=== PATIENT | female | born 1980 | race Caucasian/White ===

== ENCOUNTER 2018-09-26 09:44 | Emergency (ER) | payer MEDICAID, OTHER ==
[2018-09-26 09:51] VITALS: BMI 24.2
--- NOTE | 2018-09-26 10:52 | ED PDOC ---
HPI: Chest Pain Time Seen by Provider: 09/26/18 09:58 Chief Complaint (Nursing): Chest Pain Chief Complaint (Provider): Chest Pain History Per: Patient History/Exam Limitations: no limitations Onset/Duration Of Symptoms: Days (x3) Current Symptoms Are (Timing): Still Present Additional Complaint(s): Patient is a 38 y/o female with no significant PMHx who presents to the ED for evaluation of left-sided chest pain for the past three days. Patient reports the pain is radiating to her neck and left shoulder and arm. Patient indicated her chest pain worsens on deep inspiration, her shoulder and arm pain is exacerbated on movement, and her neck pain is positional. Patient denies cough, difficulty breathing, leg swelling, recent travel, control use, and recent injury. PCP: None Past Medical History Reviewed: Historical Data, Nursing Documentation, Vital Signs Vital Signs: Last Vital Signs Temp 98.5 F 09/26/18 09:51 Pulse 62 09/26/18 09:51 Resp 17 09/26/18 09:51 BP 127/75 09/26/18 09:51 Pulse Ox 98 09/26/18 09:51 Primary Care Provider: FAMILY PROVIDER,NO - Medical History PMH: No Chronic Diseases - Surgical History Surgical History: Appendectomy - Family History Family History: States: Unknown Family Hx - Immunization History Hx Tetanus Toxoid Vaccination: No Hx Influenza Vaccination: No Hx Pneumococcal Vaccination: No - Home Medications Home Medications: Ambulatory Orders Medication Instructions Recorded Acetaminophen/Butalbital/Caf 1 tab PO Q6H PRN #20 tab 02/24/14 [Fioricet 325 mg-50 mg-40 mg] Docusate [Colace] 100 mg PO BID #60 udc 02/24/14 oxyCODONE/Acetaminophen [Percocet 1 tab PO QID PRN #20 tab 02/24/14 5/325 mg Tab] Vitamins [ 1 Plus 1 tab PO DAILY #30 tab 05/20/14 Iron] Nitrofurantoin Macrocrystals 100 mg PO BID #10 cap 07/29/14 [Macrobid] Vitamins [ 1 1 tab PO DAILY #30 tab 07/29/14 Vitamin] Docusate [Colace] 100 mg PO TID #90 cap 01/05/15 Ferrous Sulfate 325 mg PO TID #90 tab 01/05/15 - Allergies Allergies/Adverse Reactions: Allergies Allergy/AdvReac Type Severity Reaction Status Date / Time No Known Allergies Allergy Verified 09/26/18 10:00 Review of Systems ROS Statement: Except As Marked, All Systems Reviewed And Found Negative Cardiovascular: Positive for: Chest Pain (left-sided) Respiratory: Negative for: Cough, Shortness of Breath, Other (difficulty breathing) Musculoskeletal: Positive for: Neck Pain, Shoulder Pain (left), Arm Pain (left). Negative for: Leg Pain (or swelling) Physical Exam - Reviewed Nursing Documentation Reviewed: Yes Vital Signs Reviewed: Yes - Physical Exam Appears: Positive for: No Acute Distress Head Exam: Positive for: ATRAUMATIC, NORMAL INSPECTION, NORMOCEPHALIC Skin: Positive for: Normal Color, Warm, DRY Eye Exam: Positive for: EOMI, Normal appearance, PERRL Neck: Positive for: Normal, Painless ROM, Supple Cardiovascular/Chest: Positive for: Regular Rate, Rhythm, Other (tenderness to palpation of left chest wall ). Negative for: Murmur Respiratory: Positive for: Normal Breath Sounds. Negative for: Respiratory Distress Gastrointestinal/Abdominal: Positive for: Normal Exam, Soft. Negative for: Tenderness Back: Positive for: Normal Inspection. Negative for: L CVA Tenderness, R CVA Tenderness Extremity: Positive for: Normal ROM (with pain in left shoulder), Capillary Refill (less than 2 seconds). Negative for: Pedal Edema, Deformity, Swelling, Other (ecchymosis) Neurological/Psych: Positive for: Awake, Alert, Oriented (x3) - Laboratory Results Result Diagrams: 09/26/18 10:45 09/26/18 10:45 - ECG ECG Rhythm: Positive for: Sinus Rhythm Rate: 64 O2 Sat by Pulse Oximetry: 98 (RA) Pulse Ox Interpretation: Normal Medical Decision Making Medical Decision Making: Time: 1014 Impression: Chest Pain and Musculoskeletal Pain DDx includes but not limited to cervical radiculopathy and PE. Plan: EKG BMP CPK Troponin I CBC D Dimer CXR Toradol 15 mg IVP Atg Java Developer Time: 1106 CXR FINDINGS: LUNGS: No active pulmonary disease. PLEURA: No significant pleural effusion identified. No pneumothorax apparent. CARDIOVASCULAR: No aortic atherosclerotic calcification present. Normal cardiac size. No pulmonary vascular congestion. OSSEOUS STRUCTURES: No significant abnormalities. VISUALIZED UPPER ABDOMEN: Normal. OTHER FINDINGS: None. IMPRESSION: No active disease. TIme: 1438 Patient still reports chest tightness. Ordering CT Chest w/ Contrast and will administer 2 mg of Morphine IVP. Time: 1600 Patient endorsed from provider to Jeremy Terrazas MD. Pending CT. Scribe Attestation: Documented by Sanjay Parker, acting as a scribe Braden James MD. Provider Scribe Attestation: All medical record entries made by the Scribe were at my direction and personally dictated by me. I have reviewed the chart and agree that the record accurately reflects my personal performance of the history, physical exam, medical decision making, and the department course for this patient. I have also personally directed, reviewed, and agree with the discharge instructions and disposition. Disposition - Disposition Forms: [employer] (Serbian)
--- NOTE | 2018-09-26 11:10 | RAD ---
Date of service: 09/26/2018 HISTORY: chest pain COMPARISON: None TECHNIQUE: Chest PA and lateral views FINDINGS: LUNGS: No active pulmonary disease. PLEURA: No significant pleural effusion identified. No pneumothorax apparent. CARDIOVASCULAR: No aortic atherosclerotic calcification present. Normal cardiac size. No pulmonary vascular congestion. OSSEOUS STRUCTURES: No significant abnormalities. VISUALIZED UPPER ABDOMEN: Normal. OTHER FINDINGS: None. IMPRESSION: No active disease.
[2018-09-26 11:19] LABS: BASO # 0.1 K/uL (0.0-0.2); BASO % 0.6 % (0.0-2.0); EOS # 0.1 K/uL (0.0-0.7); EOS % 0.9 % (0.0-4.0); HEMOGLOBIN 13.1 g/dL (12.0-16.0); LYMPH # 1.9 K/uL (1.0-4.3); LYMPH % 21.4 % (20.0-40.0); MEAN CELL VOLUME 88.6 fl (81.0-99.0); MEAN CORPUSCULAR HEMOGLOBIN 29.7 pg (27.0-31.0); MEAN CORPUSCULAR HGB CONC 33.5 g/dL (33.0-37.0); MEAN PLATELET VOLUME 9.3 fl (7.2-11.7); MONO # 0.6 K/uL (0.0-0.8); MONO % 6.4 % (0.0-10.0); NEUT # 6.4 K/uL (1.8-7.0); NEUT % 70.7 % (50.0-75.0); NRBC % 0.1 % (0.0-0.0); RBC 4.41 Mil/uL (3.80-5.20); RED CELL DISTRIBUTION WIDTH 13.5 % (11.5-14.5); WHITE BLOOD COUNT 9.1 K/uL (4.8-10.8)
[2018-09-26 11:44] LABS: BLOOD UREA NITROGEN 13 mg/dl (7-17); CALCIUM 9.2 mg/dL (8.4-10.2); GFR NON-AFRICAN AMERICAN > 60
[2018-09-26] MEDS ORDERED: Iohexol 300 100 ML IJ ONE (15:23)
[2018-09-26] MEDS ORDERED: Sodium Chloride 0.9% 50 ML IV ONE (15:24)
--- NOTE | 2018-09-26 16:00 | ED PDOC ---
- Laboratory Results Result Diagrams: 09/26/18 10:45 09/26/18 10:45 Lab Results: D-Dimer, Quantitative < 200 ng/mlDDU (0-230) 09/26/18 10:45 Troponin I < 0.0120 ng/mL (0.00-0.120) 09/26/18 10:45 - ECG O2 Sat by Pulse Oximetry: 98 (RA) Pulse Ox Interpretation: Normal Medical Decision Making Medical Decision Making: Time: 1600 Patient endorsed to provider from Waqas James MD. Pending CT Chest. 16:52 CT Chest with contrast FINDINGS: LUNGS: Faint multifocal airspace disease likely pneumonitis/bronchitis. None cardiogenic pulmonary edema can also assume this appearance. MEDIASTINUM: Unremarkable thoracic aorta. No aneurysm or dissection. Normal sized heart. Main pulmonary artery unremarkable. No vascular congestion. No lymphadenopathy. No aortic atherosclerotic calcification or mural plaque present. PLEURA: No pleural fluid. No pneumothorax. BONES: No fracture. No destructive lesion. UPPER ABDOMEN: Grossly unremarkable. OTHER FINDINGS: None. IMPRESSION: Faint multifocal infiltrates. Differential considerations include atypical pneumonia/pneumonitis. Noncardiogenic pulmonary edema should also be considered. 18:02 Patient reevaluted, feels improved with normal vitals including O2 saturation. pt is aware of results. Will discharge patient with a Z-Pack and refer to the clinic for follow up. Scribe Attestation: Documented by Sanjay Parker, acting as a scribe forJeremy Terrazas MD. Provider Scribe Attestation: All medical record entries made by the Scribe were at my direction and personally dictated by me. I have reviewed the chart and agree that the record accurately reflects my personal performance of the history, physical exam, medical decision making, and the department course for this patient. I have also personally directed, reviewed, and agree with the discharge instructions and disposition. Disposition Counseled Patient/Family Regarding: Studies Performed, Diagnosis, Need For Followup - Clinical Impression Clinical Impression: Chest pain, Atypical pneumonia - POA Present On Arrival: None - Disposition Referrals: [facility] [Outside] [facility] [Outside] Disposition: Routine/Home Disposition Time: 18:02 Condition: IMPROVED Additional Instructions: follow up as an outpatient in clinic in 2 days return to the ED with any worsening or concerning symptoms Prescriptions: Azithromycin [Zithromax] 250 mg PO DAILY #6 tab Ibuprofen [Motrin] 600 mg PO Q6H PRN #20 tab PRN Reason: Pain, Moderate (4-7) Instructions: Chest Pain (DC) Forms: [facility] (S[place] Arabian), [facility] (Paraguayan) Print Language: UKRAINIAN
--- NOTE | 2018-09-26 16:55 | CT ---
Date of service: 09/26/2018 PROCEDURE: CT Chest with contrast HISTORY: Unspecified chest pain. COMPARISON: September 26, 2018. Two-view chest TECHNIQUE: Contiguous axial images were obtained through the chest with intravenous contrast enhancement. Sagittal and coronal reconstructions were performed. IV contrast: 73.6 cc 300. Radiation dose: Total exam DLP = 182.47 mGy-cm. This CT exam was performed using one or more of the following dose reduction techniques: Automated exposure control, adjustment of the mA and/or kV according to patient size, and/or use of iterative reconstruction technique. FINDINGS: LUNGS: Faint multifocal airspace disease likely pneumonitis/bronchitis. None cardiogenic pulmonary edema can also assume this appearance. MEDIASTINUM: Unremarkable thoracic aorta. No aneurysm or dissection. Normal sized heart. Main pulmonary artery unremarkable. No vascular congestion. No lymphadenopathy. No aortic atherosclerotic calcification or mural plaque present. PLEURA: No pleural fluid. No pneumothorax. BONES: No fracture. No destructive lesion. UPPER ABDOMEN: Grossly unremarkable. OTHER FINDINGS: None. IMPRESSION: Faint multifocal infiltrates. Differential considerations include atypical pneumonia/pneumonitis. Noncardiogenic pulmonary edema should also be considered.
--- NOTE | 2018-09-26 17:33 | CARD ---
APPROVED REPORT Date of service: 09/26/2018 EKG Measurement Heart [id number] <Conclusion> Normal sinus rhythm Normal ECG
[2018-09-26 19:01] VITALS: BP 121/68; PULSE 58; RESP 16; TEMP 98.1
[2018-10-01 02:42] VITALS: O2SAT 98
== END 2018-09-26 19:25 | disposition home or self-care (01) ==
LOC: H.ER 09:44
DX: R07.89 Other chest pain (principal); J18.9 Pneumonia, unspecified organism
CPT/HCPCS: 71046; 71260; 80048; 81025; 82550; 84484; 85025; 85378; 93005; 96374; 96375; 99284; J1885; J2270; Q9967